=== PATIENT | female | born 1975 | race Caucasian/White ===

== ENCOUNTER 2019-03-21 20:10 | Emergency (ER) | payer OTHER ==
[~2019-03-21] VITALS: Ht 165.1 cm; Wt 119.3 kg
--- NOTE | 2019-03-21 20:52 | ER.PDOC ---
General Chief Complaint: Abdomen Pain Stated Complaint: ABD PAIN Time seen by MD: 20:51 Source: patient Exam Limitations: no limitations History of Present Illness Initial Comments Abdominal pain for Months and occasional bleeding per vagina in clots. Timing/Duration: intermittent Severity/Quality: moderate, sharpness Radiation: no radiation Associated Symptoms: denies symptoms Exacerbated by: nothing Relieved By: nothing Allergies: Coded Allergies: No Known Allergies (Unverified , 03/21/19) Vital Signs First Vital Signs Date Time Temp Pulse Resp B/P (MAP) Pulse Ox O2 Delivery O2 Flow Rate FiO2 03/21/19 20:33 98.1 97 16 98.1 03/21/19 20:33 97 Room Air Last Vital Signs Date Time Temp Pulse Resp B/P (MAP) Pulse Ox O2 Delivery O2 Flow Rate FiO2 03/21/19 20:33 98.1 97 16 97 Room Air 98.1 Past Medical History Medical History: no pertinent history Surgical History: other LMP (females 10-50): unknown Social History Smoking: cigarettes Alcohol Use: none Drug Use: none Constitutional: no symptoms reported Respiratory: no symptoms reported Cardiovascular: no symptoms reported Gastrointestinal: see HPI Musculoskeletal: no symptoms reported All Other Systems: Reviewed and Negative Physical Exam General Appearance: No Apparent Distress, WD/WN Neck: Non-Tender, Full Range of Motion, Supple, Normal Inspection Respiratory: chest non-tender, lungs clear, normal breath sounds, no respiratory distress, no accessory muscle use Cardiovascular: Normal Peripheral Pulses, Regular Rate, Rhythm, No Edema, No Ga llop, No JVD, No Murmur Gastrointestinal: Normal Bowel Sounds, No Organomegaly, No Pulsatile Mass, Guarding, Tenderness (RUQ) Back: Normal Inspection, No CVA Tenderness, No Vertebral Tenderness Extremities: Normal Range of Motion, Non-Tender, Normal Inspection, No Pedal Edema, No Calf Tenderness, Normal Capillary Refill, Pelvis Stable Neurologic/Psychiatric: site head II-XII NML as Tested, No Motor/Sensory Deficits, Alert, Normal Mood/Affect, Oriented x 3 Skin: Normal Color, Warm/Dry Results/Orders Results/Orders Orders - KRUNAL TADEO MD Cbc With Auto Diff (03/21/19 20:50) Comprehensive Metabolic Panel (03/21/19 20:50) Lipase (03/21/19 20:50) PT (03/21/19 20:50) Partial Thromboplastin Time. (03/21/19 20:50) Urinalysis (03/21/19 20:50) Ct Abd/Pelvis Wo Iv Contrast (03/21/19 20:50) Hcg Urine (03/21/19 20:50) Urine Culture (03/21/19 UNK) Vital Signs Date Time Temp Pulse Resp B/P (MAP) Pulse Ox O2 Delivery O2 Flow Rate FiO2 03/21/19 20:33 98.1 97 16 97 Room Air 98.1 03/21/19 20:33 98.1 98.1 03/21/19 20:33 98.1 97 16 98.1 Laboratory Tests Test 03/21/19 00:00 03/21/19 20:55 03/21/19 21:18 Urine Collection Type VOID Urine Color YELLOW (YELLOW) Urine Appearance SLIGHTLY CLOUDY (CLEAR) Urine Bilirubin NEGATIVE MG/DL (NEGATIVE) Urine Ketones NEGATIVE (NEGATIVE) Urine Specific [place] 1.025 (1.005-1.035) Urine pH 5 (5.0-6.0) Urine Protein NEGATIVE (NEGATIVE) Urine Urobilinogen NORMAL (NEGATIVE) Urine Nitrate NEGATIVE (NEGATIVE) Urine Leukocyte Esterase NEGATIVE (NEGATIVE) Urine Blood NEGATIVE (NEGATIVE) Urine RBC 0-2 RBC/HPF (NONE SEEN) Urine WBC 2-5 WBC/HPF (0-2) Urine Squamous Epithelial Cells MANY #/HPF (FEW) Urine Bacteria FEW (NONE SEEN) H Urine Glucose 1000 (NEGATIVE) H Urine HCG, Qualitative NEGATIVE (NEGATIVE) White Blood Count 11.1 10^3/uL (4.5-11.0) H Red Blood Count 5.32 10^6/uL (4.00-5.20) H Hemoglobin 16.0 g/dL (12.0-15.0) H Hematocrit 46.7 % (36.0-46.0) H Mean Corpuscular Volume 87.8 fL (78-100) Mean Corpuscular Hemoglobin 30.1 pg (26-34) Mean Corpuscular Hemoglobin Concent 34.3 g/dL (33-37) Red Cell Distribution Width 13.4 % (11.5-14.5) Platelet Count 344 10^3/uL (150-400) Mean Platelet Volume 9.7 fL (7.8-11.0) Neutrophils (%) (Auto) 65.9 % (41.0-85.0) Lymphocytes (%) (Auto) 27.3 % (24.0-44.0) Monocytes (%) (Auto) 5.6 % (5.0-12.0) Neutrophils # (Auto) 7.3 10^3/uL (1.8-7.7) Lymphocytes # (Auto) 3.0 10^3/uL (1.0-4.8) Monocytes # (Auto) 0.6 10^3/uL (0.3-0.8) Absolute Immature Granulocyte (auto 0.03 10^3 u/L (0-2) Immature Granulocytes % 0.30 % (0.00-0.50) Eosinophils % 0.5 % (0.0-5.0) Basophils % 0.4 % (0.0-0.2) H Basophils # 0.0 10^3/uL (0.0-0.1) Eosinophil Count 0.1 10^3/uL (0.0-0.2) Prothrombin Time 10.2 SEC (9.8-11.9) Prothrombin Time INR (Non-Therap) 1.0 PTT 22.1 SEC (24.67-30.72) Sodium Level 136 mmol/L (132-145) Potassium Level 4.1 mmol/L (3.6-5.2) Chloride Level 102.0 mmol/L (96-109) Carbon Dioxide Level 23.3 mmol/L (20.0-32) Anion Gap 14.8 Blood Urea Nitrogen 12 mg/dL (7-18) Creatinine 0.96 mg/dL (0.59-1.40) Estimated GFR () 75.7 (>/=60) BUN/Creatinine Ratio 12.0 Glucose Level 269 mg/dL (70-110) H Calcium Level 9.8 mg/dL (8.4-10.5) Total Bilirubin 0.4 mg/dL (0.2-1.0) Aspartate Amino Transferase (AST) 52 U/L (0-35) H Alanine Aminotransferase (ALT) 77 U/L (12-78) Alkaline Phosphatase 109 U/L (50-136) Total Protein 8.1 g/dL (6.4-8.2) Albumin 3.8 g/dL (3.4-5.0) Globulin 4.3 Lipase 79 U/L (114-286) L Differential Total Cells Counted 100 #CELLS Segmented Neutrophils 76 % (31-76) Lymphocytes 18 % (25-36) L Monocytes 4 % (3-9) Absolute Eosinophils (Manual) 1 % (1-4) Basophils 1 % (0-2) Nucleated Red Blood Cells 1 % (0-0) H Platelet Estimate ADEQUATE Platelet Morphology NORMAL Blood Morphology Comment NORMAL MORPHOLOGY Progress Progress CT abdomen/pelvis: Normal appendix. 2. Colonic diverticulosis and possible early/mild acute sigmoid diverticulitis. Neoplasm not excluded. 3. Hepatic steatosis new. Counselled patient about going to [facility] or [place] as suggested by GI Doctor communications attendant for [facility]. Patient prefers to go to [facility]. Course Sepsis Screening Results: Posi: POSITIVE SEPSIS RISK Vitals & review Data Vital Sign - Last 24 Hours 03/21/19 03/21/19 03/21/19 20:33 20:33 20:33 Temp 98.1 98.1 98.1 98.1 98.1 98.1 Pulse 97 97 Resp 16 16 Pulse Ox 97 O2 Delivery Room Air Laboratory Tests Test 03/21/19 00:00 03/21/19 20:55 03/21/19 21:18 Urine Collection Type VOID Urine Color YELLOW Urine Appearance SLIGHTLY CLOUDY Urine Bilirubin NEGATIVE MG/DL Urine Ketones NEGATIVE Urine Specific [place] 1.025 Urine pH 5 Urine Protein NEGATIVE Urine Urobilinogen NORMAL Urine Nitrate NEGATIVE Urine Leukocyte Esterase NEGATIVE Urine Blood NEGATIVE Urine RBC 0-2 RBC/HPF Urine WBC 2-5 WBC/HPF Urine Squamous Epithelial Cells MANY #/HPF Urine Bacteria FEW Urine Glucose 1000 Urine HCG, Qualitative NEGATIVE White Blood Count 11.1 10^3/uL Red Blood Count 5.32 10^6/uL Hemoglobin 16.0 g/dL Hematocrit 46.7 % Mean Corpuscular Volume 87.8 fL Mean Corpuscular Hemoglobin 30.1 pg Mean Corpuscular Hemoglobin Concent 34.3 g/dL Red Cell Distribution Width 13.4 % Platelet Count 344 10^3/uL Mean Platelet Volume 9.7 fL Neutrophils (%) (Auto) 65.9 % Lymphocytes (%) (Auto) 27.3 % Monocytes (%) (Auto) 5.6 % Neutrophils # (Auto) 7.3 10^3/uL Lymphocytes # (Auto) 3.0 10^3/uL Monocytes # (Auto) 0.6 10^3/uL Absolute Immature Granulocyte (auto 0.03 10^3 u/L Immature Granulocytes % 0.30 % Eosinophils % 0.5 % Basophils % 0.4 % Basophils # 0.0 10^3/uL Eosinophil Count 0.1 10^3/uL Prothrombin Time 10.2 SEC Prothrombin Time INR (Non-Therap) 1.0 Activated Partial Thromboplast Time 22.1 SEC Sodium Level 136 mmol/L Potassium Level 4.1 mmol/L Chloride Level 102.0 mmol/L Carbon Dioxide Level 23.3 mmol/L Anion Gap 14.8 Blood Urea Nitrogen 12 mg/dL Creatinine 0.96 mg/dL Estimated GFR () 75.7 BUN/Creatinine Ratio 12.0 Glucose Level 269 mg/dL Calcium Level 9.8 mg/dL Total Bilirubin 0.4 mg/dL Aspartate Amino Transf (AST/SGOT) 52 U/L Alanine Aminotransferase (ALT/SGPT) 77 U/L Alkaline Phosphatase 109 U/L Total Protein 8.1 g/dL Albumin 3.8 g/dL Globulin 4.3 Lipase 79 U/L Differential Total Cells Counted 100 #CELLS Segmented Neutrophils 76 % Lymphocytes 18 % Monocytes 4 % Absolute Eosinophils (Manual) 1 % Basophils 1 % Nucleated Red Blood Cells 1 % Platelet Estimate ADEQUATE Platelet Morphology NORMAL Blood Morphology Comment NORMAL MORPHOLOGY Sepsis Infection Criteria Pres: None O2 Sat by Pulse Oximetry: 97 Departure Time of Disposition: 22:29 Disposition: 02 XFER [facility] HOSP Impression: Primary Impression: Abdominal pain Additional Impression: Intrahepatic bile duct dilation Condition: Stable Referrals: PCP,UNKNOWN (PCP) PRIMARY CARE PROVIDER Comments Transfer to [facility] ED for Dr. Montiel. Duration or Time Spent with Pa: 60 mins Problem Qualifiers Primary Impression: Abdominal pain Abdominal location: right upper quadrant Qualified Codes: R10.11 - Right upper quadrant pain SHWETHA,KRUNAL Hollis MD Mar 21, 2019 20:52
[2019-03-21 20:57] LABS: BILIRUBIN,URINE NEGATIVE (NEGATIVE); UROBILINOGEN,URINE NORMAL (NEGATIVE)
[2019-03-21 21:05] LABS: BASOPHIL % 0.4 % (0.0-0.2); EOSINOPHIL # 0.1 10^3/uL (0.0-0.2); EOSINOPHIL % 0.5 % (0.0-5.0); LYMPHOCYTES % 27.3 % (24.0-44.0); MEAN CELL HGB 30.1 pg (26-34); MEAN CELL HGB CONCENTRATION 34.3 g/dL (33-37); MEAN CORP VOLUME 87.8 fL (78-100); MEAN PLATELET VOLUME 9.7 fL (7.8-11.0); MONOCYTES # 0.6 10^3/uL (0.3-0.8); MONOCYTES % 5.6 % (5.0-12.0); NEUTROPHIL # 7.3 10^3/uL (1.8-7.7); NEUTROPHILS % 65.9 % (41.0-85.0); RED CELL DISTRIBUTION WIDTH 13.4 % (11.5-14.5); WHITE BLOOD CELL 11.1 10^3/uL (4.5-11.0)
[2019-03-21 21:14] LABS: APPEARANCE,URINE SLIGHTLY CLOUDY (CLEAR); UA COLOR YELLOW (YELLOW)
[2019-03-21 21:26] LABS: CALCIUM 9.8 mg/dL (8.4-10.5); CARBON DIOXIDE 23.3 mmol/L (20.0-32)
--- NOTE | 2019-03-21 21:41 | DIREP ---
PROCEDURE:CT ABD/PELVIS WITHOUT CONTRAST TECHNIQUE:No oral contrast was given. Axial cuts were obtained from the dome of the diaphragm to the ischial tuberosities. No intravenous contrast was given. The images were viewed at lung and soft tissue settings. Sagittal and coronal reconstructions are provided. COMPARISON:None. INDICATIONS:Lower abdominal pain FINDINGS: LOWER CHEST:No infiltrate or pleural effusion. LIVER:Moderately severe fatty infiltration. BILIARY:No gallstones or biliary duct dilatation. PANCREAS:Normal. SPLEEN:Normal. URINARY TRACT:No renal or ureteral stone, obstruction or perinephric inflammation. Unremarkable urinary bladder. ADRENALS:Normal. AORTA/VASCULAR:Normal. RETROPERITONEUM:Normal. BOWEL/MESENTERY:Distal colonic diverticula. Segmental wall thickening of the midsigmoid colon. No obstruction, inflammatory stranding, free fluid or air. Normal air-filled appendix. ABDOMINAL WALL:Normal. PELVIS:Normal. BONES:Normal. OTHER:Normal. CONCLUSION: 1. Normal appendix. 2. Colonic diverticulosis and possible early/mild acute sigmoid diverticulitis. Neoplasm not excluded. 3. Hepatic steatosis new. Dictated by: Dagmar Huerta MD on 03/21/2019 at 09:36 PM
[2019-03-21 22:13] LABS: BASOPHIL 1 % (0-2); EOSINOPHIL 1 % (1-4); LYMPHOCYTE 18 % (25-36); MONOCYTE 4 % (3-9); NUCLEATED RED BLOOD CELLS 1 % (0-0); SEGMENTED NEUTROPHILS 76 % (31-76)
[2019-03-21] MEDS ORDERED: FLAGYL PO STA (22:38)
[2019-03-21] MEDS ORDERED: CIPRO PO STA (22:38)
[2019-03-21] MEDS ORDERED: CIPRO ONE (22:44)
[2019-03-21] MEDS ORDERED: FLAGYL ONE (22:44)
--- NOTE | 2019-03-21 22:46 | ER.PDOC ---
General Chief Complaint: Abdomen Pain Stated Complaint: ABD PAIN Time seen by MD: 21:10 Source: patient Exam Limitations: no limitations History of Present Illness Initial Comments Abdominal pain for Months. Also has been bleeding intermittently in clots for Months. Timing/Duration: intermittent Severity/Quality: moderate, sharpness Radiation: no radiation Associated Symptoms: denies symptoms Exacerbated by: nothing Relieved By: nothing Allergies: Coded Allergies: No Known Allergies (Unverified , 03/21/19) Vital Signs First Vital Signs Date Time Temp Pulse Resp B/P (MAP) Pulse Ox O2 Delivery O2 Flow Rate FiO2 03/21/19 20:33 98.1 97 16 98.1 03/21/19 20:33 97 Room Air Last Vital Signs Date Time Temp Pulse Resp B/P (MAP) Pulse Ox O2 Delivery O2 Flow Rate FiO2 03/21/19 20:33 98.1 97 16 97 Room Air 98.1 Past Medical History Medical History: no pertinent history Surgical History: other LMP (females 10-50): unknown Social History Smoking: cigarettes Alcohol Use: none Drug Use: none Constitutional: no symptoms reported EENTM: no symptoms reported Respiratory: no symptoms reported Cardiovascular: no symptoms reported Gastrointestinal: see HPI Genitourinary: see HPI All Other Systems: Reviewed and Negative Physical Exam General Appearance: No Apparent Distress, WD/WN Neck: Non-Tender, Full Range of Motion, Supple, Normal Inspection Respiratory: chest non-tender, lungs clear, normal breath sounds, no respiratory distress, no accessory muscle use Cardiovascular: Normal Peripheral Pulses, Regular Rate, Rhythm, No Edema, No Gallop, No JVD, No Murmur Gastrointestinal: Normal Bowel Sounds, No Organomegaly, No Pulsatile Mass, Tenderness (lower abdomen) Back: Normal Inspection, No CVA Tenderness, No Vertebral Tenderness Extremities: Normal Range of Motion, Non-Tender, Normal Inspection, No Pedal Edema, No Calf Tenderness, Normal Capillary Refill, Pelvis Stable Neurologic/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 (03/21/19 20:50) Urinalysis (03/21/19 20:50) Ct Abd/Pelvis Wo Iv Contrast (03/21/19 20:50) Hcg Urine (03/21/19 20:50) Urine Culture (03/21/19 UNK) Vital Signs Date Time Temp Pulse Resp B/P (MAP) Pulse Ox O2 Delivery O2 Flow Rate FiO2 03/21/19 20:33 98.1 97 16 97 Room Air 98.1 03/21/19 20:33 98.1 98.1 03/21/19 20:33 98.1 97 16 98.1 Laboratory Tests Test 03/21/19 00:00 03/21/19 20:55 03/21/19 21:18 Urine Collection Type VOID Urine Color YELLOW (YELLOW) Urine Appearance SLIGHTLY CLOUDY (CLEAR) Urine Bilirubin NEGATIVE MG/DL (NEGATIVE) Urine Ketones NEGATIVE (NEGATIVE) Urine Specific [place] 1.025 (1.005-1.035) Urine pH 5 (5.0-6.0) Urine Protein NEGATIVE (NEGATIVE) Urine Urobilinogen NORMAL (NEGATIVE) Urine Nitrate NEGATIVE (NEGATIVE) Urine Leukocyte Esterase NEGATIVE (NEGATIVE) Urine Blood NEGATIVE (NEGATIVE) Urine RBC 0-2 RBC/HPF (NONE SEEN) Urine WBC 2-5 WBC/HPF (0-2) Urine Squamous Epithelial Cells MANY #/HPF (FEW) Urine Bacteria FEW (NONE SEEN) H Urine Glucose 1000 (NEGATIVE) H Urine HCG, Qualitative NEGATIVE (NEGATIVE) White Blood Count 11.1 10^3/uL (4.5-11.0) H Red Blood Count 5.32 10^6/uL (4.00-5.20) H Hemoglobin 16.0 g/dL (12.0-15.0) H Hematocrit 46.7 % (36.0-46.0) H Mean Corpuscular Volume 87.8 fL (78-100) Mean Corpuscular Hemoglobin 30.1 pg (26-34) Mean Corpuscular Hemoglobin Concent 34.3 g/dL (33-37) Red Cell Distribution Width 13.4 % (11.5-14.5) Platelet Count 344 10^3/uL (150-400) Mean Platelet Volume 9.7 fL (7.8-11.0) Neutrophils (%) (Auto) 65.9 % (41.0-85.0) Lymphocytes (%) (Auto) 27.3 % (24.0-44.0) Monocytes (%) (Auto) 5.6 % (5.0-12.0) Neutrophils # (Auto) 7.3 10^3/uL (1.8-7.7) Lymphocytes # (Auto) 3.0 10^3/uL (1.0-4.8) Monocytes # (Auto) 0.6 10^3/uL (0.3-0.8) Absolute Immature Granulocyte (auto 0.03 10^3 u/L (0-2) Immature Granulocytes % 0.30 % (0.00-0.50) Eosinophils % 0.5 % (0.0-5.0) Basophils % 0.4 % (0.0-0.2) H Basophils # 0.0 10^3/uL (0.0-0.1) Eosinophil Count 0.1 10^3/uL (0.0-0.2) Prothrombin Time 10.2 SEC (9.8-11.9) Prothrombin Time INR (Non-Therap) 1.0 PTT 22.1 SEC (24.67-30.72) Sodium Level 136 mmol/L (132-145) Potassium Level 4.1 mmol/L (3.6-5.2) Chloride Level 102.0 mmol/L (96-109) Carbon Dioxide Level 23.3 mmol/L (20.0-32) Anion Gap 14.8 Blood Urea Nitrogen 12 mg/dL (7-18) Creatinine 0.96 mg/dL (0.59-1.40) Estimated GFR () 75.7 (>/=60) BUN/Creatinine Ratio 12.0 Glucose Level 269 mg/dL (70-110) H Calcium Level 9.8 mg/dL (8.4-10.5) Total Bilirubin 0.4 mg/dL (0.2-1.0) Aspartate Amino Transferase (AST) 52 U/L (0-35) H Alanine Aminotransferase (ALT) 77 U/L (12-78) Alkaline Phosphatase 109 U/L (50-136) Total Protein 8.1 g/dL (6.4-8.2) Albumin 3.8 g/dL (3.4-5.0) Globulin 4.3 Lipase 79 U/L (114-286) L Differential Total Cells Counted 100 #CELLS Segmented Neutrophils 76 % (31-76) Lymphocytes 18 % (25-36) L Monocytes 4 % (3-9) Absolute Eosinophils (Manual) 1 % (1-4) Basophils 1 % (0-2) Nucleated Red Blood Cells 1 % (0-0) H Platelet Estimate ADEQUATE Platelet Morphology NORMAL Blood Morphology Comment NORMAL MORPHOLOGY Progress Progress CT abdomen/Pelvis: Normal appendix. 2. Colonic diverticulosis and possible early/mild acute sigmoid diverticulitis. Neoplasm not excluded. 3. Hepatic steatosis new. Course Sepsis Screening Results: Posi: POSITIVE SEPSIS RISK Duration or Total Time Spent w: 60 mins Vitals & review Data Vital Sign - Last 24 Hours 03/21/19 03/21/19 03/21/19 20:33 20:33 20:33 Temp 98.1 98.1 98.1 98.1 98.1 98.1 Pulse 97 97 Resp 16 16 Pulse Ox 97 O2 Delivery Room Air Laboratory Tests Test 03/21/19 00:00 03/21/19 20:55 03/21/19 21:18 Urine Collection Type VOID Urine Color YELLOW Urine Appearance SLIGHTLY CLOUDY Urine Bilirubin NEGATIVE MG/DL Urine Ketones NEGATIVE Urine Specific [place] 1.025 Urine pH 5 Urine Protein NEGATIVE Urine Urobilinogen NORMAL Urine Nitrate NEGATIVE Urine Leukocyte Esterase NEGATIVE Urine Blood NEGATIVE Urine RBC 0-2 RBC/HPF Urine WBC 2-5 WBC/HPF Urine Squamous Epithelial Cells MANY #/HPF Urine Bacteria FEW Urine Glucose 1000 Urine HCG, Qualitative NEGATIVE White Blood Count 11.1 10^3/uL Red Blood Count 5.32 10^6/uL Hemoglobin 16.0 g/dL Hematocrit 46.7 % Mean Corpuscular Volume 87.8 fL Mean Corpuscular Hemoglobin 30.1 pg Mean Corpuscular Hemoglobin Concent 34.3 g/dL Red Cell Distribution Width 13.4 % Platelet Count 344 10^3/uL Mean Platelet Volume 9.7 fL Neutrophils (%) (Auto) 65.9 % Lymphocytes (%) (Auto) 27.3 % Monocytes (%) (Auto) 5.6 % Neutrophils # (Auto) 7.3 10^3/uL Lymphocytes # (Auto) 3.0 10^3/uL Monocytes # (Auto) 0.6 10^3/uL Absolute Immature Granulocyte (auto 0.03 10^3 u/L Immature Granulocytes % 0.30 % Eosinophils % 0.5 % Basophils % 0.4 % Basophils # 0.0 10^3/uL Eosinophil Count 0.1 10^3/uL Prothrombin Time 10.2 SEC Prothrombin Time INR (Non-Therap) 1.0 Activated Partial Thromboplast Time 22.1 SEC Sodium Level 136 mmol/L Potassium Level 4.1 mmol/L Chloride Level 102.0 mmol/L Carbon Dioxide Level 23.3 mmol/L Anion Gap 14.8 Blood Urea Nitrogen 12 mg/dL Creatinine 0.96 mg/dL Estimated GFR () 75.7 BUN/Creatinine Ratio 12.0 Glucose Level 269 mg/dL Calcium Level 9.8 mg/dL Total Bilirubin 0.4 mg/dL Aspartate Amino Transf (AST/SGOT) 52 U/L Alanine Aminotransferase (ALT/SGPT) 77 U/L Alkaline Phosphatase 109 U/L Total Protein 8.1 g/dL Albumin 3.8 g/dL Globulin 4.3 Lipase 79 U/L Differential Total Cells Counted 100 #CELLS Segmented Neutrophils 76 % Lymphocytes 18 % Monocytes 4 % Absolute Eosinophils (Manual) 1 % Basophils 1 % Nucleated Red Blood Cells 1 % Platelet Estimate ADEQUATE Platelet Morphology NORMAL Blood Morphology Comment NORMAL MORPHOLOGY Sepsis Infection Criteria Pres: None O2 Sat by Pulse Oximetry: 97 Departure Time of Disposition: 22:43 Disposition: 02 XFER [facility]OS[facility] Impression: Primary Impression: Diverticulitis large intestine Additional Impressions: Vaginal bleeding problems UTI (urinary tract infection) Condition: Stable Referrals: PCP,UNKNOWN (PCP) PRIMARY CARE PROVIDER Additional Instructions: Cipro Flagyl Ibuprofen F/U with PCP in 1 week F/U with your Securities Sales Associate. Duration or Time Spent with Pa: 90 mins Problem Qualifiers Primary Impression: Diverticulitis large intestine Diverticulitis bleeding: without bleeding Diverticulitis complication: without perforation or abscess Qualified Codes: K57.32 - Diverticulitis of large intestine without perforation or abscess without bleeding Additional Impressions: UTI (urinary tract infection) Urinary tract infection type: site unspecified Hematuria presence: with hematuria Qualified Codes: N39.0 - Urinary tract infection, site not specified; R31.9 - Hematuria, unspecified KRUNAL TADEO MD Mar 21, 2019 22:46
[2019-03-21 22:54] VITALS: BP 117/61
== END 2019-03-21 22:55 | disposition short-term general hospital (02) ==
LOC: ER 20:10
DX: K57.32 Diverticulitis of large intestine without perforation or abscess without bleeding (principal); N93.9 Abnormal uterine and vaginal bleeding, unspecified; F17.210 Nicotine dependence, cigarettes, uncomplicated; K83.8 Other specified diseases of biliary tract; N39.0 Urinary tract infection, site not specified
CPT/HCPCS: 36415; 74176; 80053; 81000; 81025; 83690; 85025; 85610; 85730; 87077; 87086; 87186; 99285